=== PATIENT | male | born 1975 | race Caucasian/White ===

== ENCOUNTER → 2025-01-07 | Outpatient (CLI) | payer BC ==
--- NOTE | 2025-01-07 10:55 | HMCIMG ---
Abdominal Aorta Ultrasound with Color Doppler waveform analysis Clinical Information: HX OF NICOTINE DEPENDENCE Comparison: None Findings: The examination shows no evidence of aneurysm of the abdominal aorta. There is no occlusion. No significant plaque formation is identified. There is no dissection. There is no rupture. Cord Doppler waveform analysis demonstrates patent aorta and main branches without significant velocity abnormalities. Impression: Normal exam. No aneurysm identified.
== END | disposition home or self-care (01) ==
LOC: RAH 08:08
PROVIDERS: ATTEND Internal Medicine
DX: F17.211 Nicotine dependence, cigarettes, in remission (principal)
CPT/HCPCS: 76775